=== PATIENT | female | born 1955 | race Caucasian/White ===

== ENCOUNTER 2021-02-14 13:45 | Outpatient (CLI) | payer MEDICARE ==
[2014-05-18 14:56] VITALS: BMI 22.6
[~2021-02-14 13:45] MED LIST: HYDROCODON-ACE1 EAC7 PO; MULTI-DAY VITAM1 TAB PO; PLAQUENIL200 MG PO; SODIUM BICARBO650 MG NG; TYLENOL W/CODEI1 TAB PO
== END 2021-02-14 14:15 | disposition home or self-care (01) ==
LOC: D.MAMMO 13:45
PROVIDERS: ATTEND Family Medicine
DX: Z12.31 Encounter for screening mammogram for malignant neoplasm of breast (principal)